=== PATIENT | female | born 1980 | race American Indian/Alaskan Native ===

== ENCOUNTER 2018-04-20 22:19 | Outpatient (CLI) | payer SELFPAY ==
[2018-04-21 00:05] VITALS: BP 123/75
--- NOTE | 2018-04-21 04:03 | Ultrasound Report ---
FINAL REPORT PROCEDURE: US OB BPP WO NON-STRESS TECHNIQUE: Sonographic evaluation for breathing, movement, tone, and amniotic flui d volume was performed. CPT 08717 HISTORY: wellbeing COMPARISON: No prior studies are available for comparison. FINDINGS: Amniotic fluid volume: Normal-score 2. At least one vertical pocket > 2 cm or more in vertical axi s. breathing: Normal-score 2. movement: Normal-score 2. tone: Normal. Score: 8 of 8. IMPRESSION: Normal biophysical profile.
--- NOTE | 2018-04-21 04:05 | Ultrasound Report ---
FINAL REPORT PROCEDURE: US OB LIMITED TECHNIQUE: Real-time limited sonographic examination was performed for evaluation of well the for each fetus with image documentation (1 or more fetuses). CPT 48166 HISTORY: wellbeing COMPARISON: No prior studies are available for comparison. FINDINGS: There is a single fetus in a vertex presentation. The 4 quadrant amniotic fluid volume is 11.3 centim eters. The placenta is along the fundus the uterus. heart rate 156 beats per minute. No further measurements are obtained. IMPRESSION: Single fetus in a vertex presentation.
--- NOTE | 2018-04-21 05:42 | Event Note ---
Date: 04/21/18 38 year old female presents to L&D triage to rule out labor at 38 weeks, 4 days gestation. Patient denies LOF or vaginal bleeding. She denies regular contractions or abdominal pain. Patient reports active movement. Patient denies complications with this ; receives care at [facility]. Patient is well appearing, alert, oriented. NAD. VSS. A few variable FHR decelerations noted with rapid return to baseline. No regular contractions noted. Now category 1 heart rate tracing. BPP 8/8. MOISÉS 11.3 cm. SVE 1/thick/high by RN. Patient was determined not to be in active labor. Consulted with Dr. Sharp re: FHR tracing and variable FHR declerations/variability and BPP and MOISÉS. Dr. Sharp states to discharge patient home and have her follow up here in L&D triage for NST in 24 hours. Discussed this plan with patient and patient states she is in agreement. Daily movement counting, warning signs discussed with pt.
== END 2018-04-21 02:45 | disposition home or self-care (01) ==
LOC: TRG 22:19
PROVIDERS: ATTEND Obstetrics & Gynecology
DX: O47.1 False labor at or after 37 completed weeks of gestation (principal); Z3A.38 38 weeks gestation of pregnancy
CPT/HCPCS: 59025; 76815; 76819

== ENCOUNTER 2018-04-21 20:43 | Outpatient (CLI) | payer SELFPAY ==
[2018-04-21 21:14] VITALS: BP 125/63
--- NOTE | 2018-04-22 21:20 | Event Note ---
Date: 04/21/18 Triage Note for 04/21/18. Patient presents to L&D triage for NST at 38 weeks, 5 days gestation. Patient was seen in L&D triage on 04/20/18 and had BPP 8/8 and reactive NST but also had a few brief variable FHR decelerations. Patient had been advised to return today for follow up NST. NST is reactive, category 1. Active movement. No decelerations noted. Not in active labor. Patient was discharged home with labor precautions and instructions to perform daily movement counting.
== END 2018-04-21 22:06 | disposition home or self-care (01) ==
LOC: TRG 20:43
PROVIDERS: ATTEND Obstetrics & Gynecology
DX: O26.893 Other specified pregnancy related conditions, third trimester (principal); R10.9 Unspecified abdominal pain; Z3A.38 38 weeks gestation of pregnancy
CPT/HCPCS: 59025